=== PATIENT | female | born 1985 | race Caucasian/White ===

== ENCOUNTER 2021-10-11 13:56 | Outpatient (CLI) | payer OTHER, SELFPAY ==
--- NOTE | ~2021-10-11 | US_ITS ---
EXAMINATION: US OB <= 14 weeks fetus EXAM DATE: 10/11/2021 14:22 INDICATION: O36.80X0 - with inconclusive viability, n... 1st trimester. TECHNIQUE: Pelvic obstetrical transabdominal sonogram was performed by a technologist. There are mu ltiple grayscale and Doppler images available for interpretation. There are no earlier studies of th is gestation for comparison. FINDINGS: Uterus measures 11.3 x 8.9 x 6.7 cm. There is intrauterine gestation sac. pole with heart rate confirmed at 175 beats per minute. The 3.6 cm crown-rump length corresponds to estimated gestational age by ultrasound of 10 weeks 4 days, estimated date of confinement 05/05. There is no sonographic evidence of subchorionic hemorrhage. Right ovary identified and is morphologically norm al with low resistance Doppler flow confirmed. IMPRESSION: Live intrauterine gestation, age by ultrasound 10 weeks 4 days. Reviewed, dictated and finalized at location A.
== END 2021-10-11 13:57 | disposition home or self-care (01) ==
LOC: ANHIMG 14:01
PROVIDERS: Visit Provider Obstetrics & Gynecology
DX: O36.80X0 Pregnancy with inconclusive fetal viability, not applicable or unspecified (principal); Z3A.10 10 weeks gestation of pregnancy
CPT/HCPCS: 76801

== ENCOUNTER 2022-04-26 10:43 | Outpatient (CLI) | payer OTHER, SELFPAY ==
--- NOTE | ~2022-04-26 | US_ITS ---
EXAMINATION: US OB limited DATE: 04/26/2022 12:27 INDICATION: Assess amniotic fluid index during third trimester of . TECHNIQUE: Real-time ultrasound of the pelvis was performed. The interpreting radiologist was not pre sent for the study. COMPARISON: None. FINDINGS: There is a single living fetus in vertex presentation. The placenta is right lateral. heart ra te is 119 beats per minute (bpm). The amniotic fluid index is 21.9 cm, which is normal (5th%-95%: 7.3 -23.9 cm at 38 weeks estimated gestational age). The amniotic fluid is hypoechoic with scattered [place] echogenic foci consistent with internal debris. IMPRESSION: 1. Single living fetus in vertex presentation with heart rate of 119 bpm. 2. Normal amniotic fluid index of 21.9 which appears hypoechoic with scattered echogenic debris whic h raises the possibility of meconium. Reviewed, dictated and finalized at location B. IMPRESSION: 1. Single living fetus in vertex presentation with heart rate of 119 bpm . 2. Normal amniotic fluid index of 21.9 which appears hypoechoic with scattered echogenic debris which raises the possibility of meconium.
[2022-04-26 12:15] VITALS: BP 112/78; PULSE 74
== END 2022-04-26 12:35 | disposition home or self-care (01) ==
LOC: ANHOBOP 11:57 → ANHLDR 11:58
PROVIDERS: Visit Provider Obstetrics & Gynecology
DX: Z36.89 Encounter for other specified antenatal screening (principal)
CPT/HCPCS: 59025; 76815; 84112; 99199

== ENCOUNTER 2022-04-30 05:15 | Inpatient (IN) | payer OTHER, SELFPAY ==
[2022-04-30] VITALS (166 sets, daily range): BP systolic 88–163; BP diastolic 45–119; PULSE 25–165; RESP 16; TEMP 36.5–37.1; O2SAT 80–100; BMI 22.7
--- NOTE | 2022-04-30 05:15 | LDADM ---
This patient, Stacy Mariee, was admitted to Labor/Delivery/Recovery 106 on 04/30/22 at 05:15. Plans for labor, pain management and were discussed with patient. Patient/family oriented to hospital policies and general routines including ID bracelet, bed and alarms, visiting hours, pain management, procedures, bathroom and other care routines, personal items, smoking policy, room service/diet and guest tray routines, infant security routines, and visiting hours. Patient/Family are encouraged to report perceived risks to care and to ask questions if they do not understand what they are told or what they should do. See OBIX for further documentation.
[2022-04-30 06:00] LABS: Basophils Absolute Auto 0.1 K/mm3 (0.0-0.1); Basophils Percent Auto 0.6 % (0.2-1.2); Eosinophils Absolute Auto 0.3 K/mm3 (0-0.3); Eosinophils Percent Auto 3.3 % (0-4.4); Hematocrit 37.8 % (37.0-47.0); Hemoglobin 12.6 g/dL (12.0-15.0); Immature Granulocyte Absolute 0.05 K/mm3 (0.00-0.031); Immature Granulocyte Percent A 0.6 % (0-0.5); Lymphocytes Absolute Auto 2.58 K/mm3 (0.9-3.2); Lymphocytes Percent Auto 33.2 % (18.3-44.2); Mean Corpuscular HGB Conc 33.3 g/dl (32-36); Mean Corpuscular Volume 92.9 fl (80-100); Mean Platelet Volume 11.6 fl (7.4-10.4); Monocytes Absolute Auto 0.5 K/mm3 (0.1-0.6); Monocytes Percent Auto 6.8 % (2.6-8.5); Neutrophils Absolute Auto 4.3 K/mm3 (1.3-6.7); Neutrophils Percent Auto 55.5 % (45.5-73.1); Platelet Count Result 204 k/mm3 (150-375); Red Blood Count 4.07 M/mm3 (4.2-5.4); Red Cell Distribution Width 12.5 % (11.5-14.5); White Blood Count 7.8 K/mm3 (4.5-10.0)
[2022-04-30] MEDS: LACTATED RINGERS 1,000 ML 125 ML IV CONT ×3 (06:14→14:07)
[2022-04-30] MEDS: OXYTOCIN 30 UNITS/NS 500 ML 30 UNITS/500 ML BAG IV CONT (06:14)
--- NOTE | 2022-04-30 10:32 | PM.IMHP ---
H&P: HPI History of Present Illness Date/Time: 04/30/22 10:32 Chief Complaint: IOL Narrative: Patient is a at 39 2/7 weeks by EDC established by 10 week ultrasound which was not consistent with LMP. PNC significant for advanced maternal age, she did stop smoking in late second trimester. PNC also significant for LGA, last ultrasound EFW was not LGA, the abdominal circumference has measured consistently > 90% which has been counseled regarding risk of dystocia, andshe has been counseled on risk of LGA. She also had mild polyhydramnios, she declined surveillance testing. She opted for medical induction of labor after being counseled regarding risk and benefit of induction of labor versus spontaneous labor. Labs reviewed. GBS neg. Review of Systems Review of Systems: All systems reviewed & are unremarkable except as noted in HPI and below Constitutional: Constitutional: Reports no additional constitutional complaints and Denies headache(s) Eyes: Eyes: Denies spots in vision ENT: Reports system reviewed and no additional complaints, except as documented and Denies headache(s) Cardiovascular: Cardiovascular: Denies chest pain and Denies dyspnea Respiratory: Respiratory: Denies dyspnea Gastrointestinal: Gastrointestinal: Reports no additional gastrointestinal complaints Genitourinary: Genitourinary: Reports amenorrhea Musculoskeletal: Musculoskeletal: Reports no additional musculoskeletal complaints Integumentary/Breasts: Skin/Breast: Denies breast mass and Denies rash Neurologic: Denies headache(s) Psychiatric: Psychiatric: Reports no additional psychiatric complaints PMFSH Family History Family History Father Alcoholism Son Asthma Grandparent Cancer Hypertension Social History Social History Smoking status: Former smoker Tobacco type: cigarettes Alcohol intake: never Substance use: never Spiritual care concerns: No Meds Home Medications and Allergies Home Medications Medication Instructions Recorded Confirmed Type vits 75-iron 28 mg-folic pkg PO 10/11/21 04/26/22 History acid 800 mcg-omega-3 oral combo pack (One A Day Women's DHA) ADVANCED Calcium 600 mg PO DAILY 04/05/22 04/26/22 History cholecalciferol (vitamin D3) 50 50 mcg PO DAILY 04/05/22 04/26/22 History mcg (2,000 unit) tablet (Vitamin D3) Allergies Allergy/AdvReac Type Severity Reaction Status Date / Time No Known Allergies Allergy Verified 04/26/22 09:59 Vital Signs Vital Signs - 24 hr 04/30/22 05:37 04/30/22 06:00 04/30/22 05:57 Temperature 97.8 F Pulse Rate 65 67 Blood Pressure 113/75 106/75 Oxygen Delivery 04/30/22 06:30 04/30/22 07:00 04/30/22 07:30 Temperature Pulse Rate 66 65 66 Blood Pressure 107/72 109/76 113/80 Oxygen Delivery 04/30/22 08:00 04/30/22 08:30 04/30/22 09:00 Temperature Pulse Rate 58 L 53 L 62 Blood Pressure 122/87 122/72 118/73 Oxygen Delivery 04/30/22 09:18 04/30/22 09:30 04/30/22 10:00 Temperature 97.8 F Pulse Rate 68 64 Blood Pressure 119/71 119/78 Oxygen Delivery 04/30/22 10:30 04/30/22 06:15 Temperature Pulse Rate 70 Blood Pressure 121/86 Oxygen Delivery Room Air Exam Const: General: no acute distress Eyes: General: appearance normal, both eyes and all related structures Resp: Effort & Inspection: normal respiratory effort Cardio: Rate: regular rate GI: Other: Gravid no fundal tenderness no right upper quadrant pain : External Female Exam: normal external appearance Speculum Exam - Cervix: Other cervical findings present (cervix 2/70/-2.) Skin: General skin exam: no rashes or lesions noted Neuro: Cognition (Neuro): normal cognition Extrem: General: normal to inspection Psych: Mental Status: mental status grossly normal H&P: R
--- NOTE | 2022-04-30 10:32 | PM.OBPNLAB ---
Pain Control Date/time seen: 04/30/22 0930 FHT 125 Cat 1, cervix /-2 at approx 0920, AROM light meconium. Discussed meconium management at delivery.
--- NOTE | 2022-04-30 11:18 | WPDANESEPP ---
Anes - Eval Pre Procedure Procedure: Labor Epidural Date/Time: 04/30/22 11:18 Surgeon: Gabriel Preop Diagnosis: Labor Pain Pre Op Diagnosis: iol Patient Data Age: 36 Gender: F Height: 1.65 m Weight: 62 kg Last Vital Signs Temp 37.1 C 04/30/22 10:59 Pulse 63 04/30/22 11:00 BP 111/61 04/30/22 11:00 O2 Del Method Room Air 04/30/22 06:15 Allergies Allergy/AdvReac Type Severity Reaction Status Date / Time No Known Allergies Allergy Verified 04/26/22 09:59 Home Medications Medication Instructions Recorded Confirmed Type vits 75-iron 28 mg-folic pkg PO 10/11/21 04/26/22 History acid 800 mcg-omega-3 oral combo pack (One A Day Women's DHA) ADVANCED Calcium 600 mg PO DAILY 04/05/22 04/26/22 History cholecalciferol (vitamin D3) 50 50 mcg PO DAILY 04/05/22 04/26/22 History mcg (2,000 unit) tablet (Vitamin D3) Laboratory Tests 04/30/22 04/30/22 04/30/22 05:35 05:35 05:35 WBC 7.8 K/mm3 K/mm3 (4.5-10.0) RBC 4.07 M/mm3 L M/mm3 (4.2-5.4) Hgb 12.6 g/dL g/dL (12.0-15.0) Hct 37.8 % % (37.0-47.0) MCV 92.9 fl fl (80-100) MCH 31.0 pg pg (26-34) MCHC 33.3 g/dl g/dl (32-36) RDW 12.5 % % (11.5-14.5) Plt Count 204 k/mm3 k/mm3 (150-375) MPV 11.6 fl H fl (7.4-10.4) Immature Gran % (Auto) 0.6 % H % (0-0.5) Neut % (Auto) 55.5 % % (45.5-73.1) Lymph % (Auto) 33.2 % % (18.3-44.2) [place] % (Auto) 6.8 % % (2.6-8.5) Eos % (Auto) 3.3 % % (0-4.4) Baso % (Auto) 0.6 % % (0.2-1.2) Lymph # (Auto) 2.58 K/mm3 K/mm3 (0.9-3.2) [place] # (Auto) 0.5 K/mm3 K/mm3 (0.1-0.6) Eos # (Auto) 0.3 K/mm3 K/mm3 (0-0.3) Baso # (Auto) 0.1 K/mm3 K/mm3 (0.0-0.1) Abs Immat Gran (auto) 0.05 K/mm3 H K/mm3 (0.00-0.031) Absolute Neuts (auto) 4.3 K/mm3 K/mm3 (1.3-6.7) Absolute Nucleated RBC 0.0 K/mm3 K/mm3 (0.0-0.012) Nucleated RBC % 0.0 % % (0.0-0.2) RPR Pending Blood Type A Positive Antibody Screen Negative : gestational age (, AMBROSIO 05/05/22) Patient hx anesthesia problems: none Family hx anesthesia problems: none Results Review: All pre-operative results and documents have been reviewed as part of the pre-operative evaluation. [facility] Family History Family History Father Alcoholism Son Asthma Grandparent Cancer Hypertension Social History Social History Smoking status: Former smoker Tobacco type: cigarettes Alcohol intake: never Substance use: never Spiritual care concerns: No Exam Day of Procedure 04/30/22 11:18 Patient weight: normal Heart: regular rate and rhythm Lungs: normal air movement Airway: Mallampati scale class II Neurological: alert and oriented
[2022-04-30 12:13] LABS: Rapid Plasma Reagin Non-Reactive (NonReactive)
[2022-04-30] MEDS: ACETAMINOPHEN 325 MG TABLET 650 MG PO (17:09)
--- NOTE | 2022-04-30 17:16 | PM.OBPRVD ---
OB - Delivery Note Procedure Delivery date: 04/30/22 Procedure: Spontaneous vaginal delivery Events: Polyhydramnios (mild) Induction method: Per Pitocin Protocol Delivery augmentation: Rupture of Membranes Delivery monitor: External FHT Route of delivery: Laceration Description: Perineal - 2nd Degree Delivery repair: vicryl (3.0 vicry) Specimen: No Quantitative Blood Loss (ml): 250 Anesthesia type: Epidural Disposition: Floor Complications: None Narrative: She was admitted on 04/30/2022. Pitocin was started. She had AROM at approximately 0920, light meconium noted. She progressed to active labor. Epidural was placed upon request. She continued to make progress in labor and dilated to complete. She pushed approximately 20 minutes and delivered a male infant. The nose and mouth suctioned at perineum. The anterior shoulder was delivered with gentle traction and the rest of the was delivered. Infant was vigorously crying and placed on maternal abdomen. Delayed cord clamping for approximately 45 sec and then the cord was doubly clamped and cut. Pitocin was started. Placenta was delivered spontaneously and intact. She did sustain a second degree perineal laceration which was repaired with 3.0 vicryl. Patient tolerated procedure well. Kermit Baby Date of : 04/30/22 Time of : 16:35 Weeks of gestation at delivery: 39 gender: Male Weight (pounds): 8 Weight (ounces): 7 presentation: vertex position: Right Occiput Anterior Placenta delivery description: Spontaneous Cord Vessel Description: Delayed Cord Clamping score one minute: 8 score five minutes: 9
[2022-04-30] MEDS: WITCH HAZEL 40 PADS 1 PAD TOPICAL (19:12)
[2022-04-30] MEDS: BENZOCAINE 20% AER SPR (*SP) 56 GM CAN 1 SPRAY TOPICAL (19:12)
--- NOTE | 2022-04-30 19:55 | PC.NURSE ---
Patient transferred to post room # [id number] via ( w/c ). Support person present. Oriented to unit, room, information board, rooming in, admission packet and security measures. Patient verbalizes understanding.
[2022-04-30] MEDS: IBUPROFEN 600 MG TABLET PO (21:32)
[2022-05-01 00:15] VITALS: BP 104/44; PULSE 78; RESP 16; TEMP 36.7; O2SAT 97
[2022-05-01] MEDS: ACETAMINOPHEN 325 MG TABLET 650 MG PO ×3 (00:24→15:51)
[2022-05-01 05:00] VITALS: BP 95/56; PULSE 75; RESP 16; TEMP 36.7; O2SAT 98
[2022-05-01] MEDS: IBUPROFEN 600 MG TABLET PO ×2 (05:25→11:29)
[2022-05-01 06:02] LABS: Hematocrit 28.9 % (37.0-47.0); Hemoglobin 9.7 g/dL (12.0-15.0)
--- NOTE | 2022-05-01 07:41 | WPDANLDPN2 ---
Anes-Prog Note L&D Date/Time: 05/01/22 07:41 Comfortable throughout: labor Neuraxial method: epidural Epidural/Spinal procedure site: clean & non-tender Neuro status: Neuro function grossly intact. Cardiovascular status: normal Respiratory status: normal Airway patency: baseline Mental status: baseline Post-Op hydration status: normal Vital Signs: Last Vital Signs Temp 98.0 F 05/01/22 05:00 Pulse 75 05/01/22 05:00 Resp 16 05/01/22 05:00 BP 95/56 L 05/01/22 05:00 Pulse Ox 98 05/01/22 05:00 O2 Del Method Room Air 04/30/22 20:20 Pain score (VAS): 0-1 I/O: Intake & Output 04/30/22 04/30/22 05/01/22 15:59 23:59 07:59 Intake Total 1999 1500 Output Total 295 Balance 1999 1205 Patient feedback: Patient satisfied with anesthetic care.
[2022-05-01 07:45] VITALS: BP 105/60; PULSE 76; RESP 16; TEMP 36.6; O2SAT 99
[2022-05-01] MEDS: DIBUCAINE 1% OINTMENT 30 GM TUBE 1 APPLIC TOPICAL (09:03)
--- NOTE | 2022-05-01 10:48 | PC.NURSE ---
[id number] Introductions were made, then consulted with patient to assess needs related to . Mother led the conversation with her?plans to feed?her infant and the?experience so far. Resources provided for inpatient and outpatient services using a resource guide and mom/baby guide. Mother voiced understanding of information and requests assistance waking her . Mother understands skin to skin. RN encouraged stimulating infant with position changes, massage touch, talking and burping. was sleepy and reluctant after circumcision and pain medication. Encourage mother to call if infant doesn't wake in 1-2 hours to eat, discussed checking infant's blood sugar if it has been 6 hours since the last feeding or if there's pain with latching. Reported to primary RN.
[2022-05-01 11:55] VITALS: BP 97/55; PULSE 57; RESP 16; TEMP 37.6; O2SAT 98
--- NOTE | 2022-05-01 12:48 | P.PNOB_ITS ---
OB - PN: Subj Subjective Date/time seen: 05/01/22 12:48 Patient comments: pain well controlled, tolerating diet and other (Decreasing lochia.) baby status: doing well and nursing well [place] feeding status: exclusively breast feeding OB - PN: Obj Data Labs CBC & Chem 7: 05/01/22 05:21 Labs: Laboratory Results - last 24 hr 05/01/22 05:21 Hgb 9.7 L Hct 28.9 L OB - PN A/P Assessment and Plan (1) Delivery normal: Code(s): O80 - Encounter for full-term uncomplicated delivery Status: Acute Plan She is doiing well. She desires discharge today. Plan day: 1 Plan: routine care Comments: Patient doing well. Time Spent With Patient Time: Total time spent is greater than 50% in coordination of care (as documented) at patient's floor/unit and/or counseling patient: Exam Psych: Affect: normal affect Other: Abd: fundus firm below umbilicus, nontender Perineum: healing Ext: nontender
[2022-05-01 16:00] VITALS: BP 101/50; PULSE 55; RESP 16; TEMP 36.6; O2SAT 97
--- NOTE | 2022-05-25 09:28 | PM.OBDSVD ---
DS: Admitting Diagnosis Discharge Date 05/01/22 Admitting Diagnosis Medical induction of labor DS: Discharge Diagnosis Discharge Diagnosis (1) Delivery normal: Code(s): O80 - Encounter for full-term uncomplicated delivery Status: Acute Plan Intrauterine delivered OB - DS: Summary Hospital Course Hospital Course: She was admitted for medical induction of labor with Pitocin. She had an uncomplicated vaginal delivery. She did well . Baby was doing well. She was discharged to home on day 1. Discharge precautions discussed. OB Procedures : Ultrasound OB Procedures Intrapartum: Spontaneous Vag Delivery OB Procedures: : None Peripartum Data Delivery Method: Natural Vaginal Laceration Description: Perineal - 2nd Degree complications: none Status at Discharge Functional status at discharge: independent ambulation Time Spent with Patient Time attestation: Total time spent providing and/or coordinating discharge services: Exam Const: General: cooperative Orientation/consciousness: oriented to person, oriented to place and oriented to time HENMT: Face/Nose/Sinus: Normal external nose present Eyes: General: appearance normal, both eyes and all related structures Resp: Effort & Inspection: normal respiratory effort GI: Inspection: normal to inspection : Other: fundus firm nontender perineum healing Skin: General skin exam: normal color Neuro: General: oriented to person, oriented to place and oriented to time Extrem: General: normal to inspection and no calf tenderness Psych: Appearance: grossly normal Mental Status: mental status grossly normal Discharge Plan Discharge Attending physician on discharge: Kp Rios Consulting providers: Elba Aponte ; Faviola Kessler Discharging Clinician: Kp Rios Anticipated Discharge Date/Time: 05/01/22 16:13 Patient Disposition: Home, Self-Care Activity: may shower and pelvic rest Diet: regular Discharge Instructions: Education: Mom and Baby Guide Given to: Mother Follow-Up: Call your delivering provider's office for an appointment to be seen in: 4-6 Weeks Mom and baby should come to the [facility] for the follow-up appointment. Appointment Date/Time: May 03, 2022 at 10:00 am What to expect at your follow-up visit: Blood Pressure Check Physical Assessment Call [phone] if you are unable to keep your appointment time. BREAST CARE: * Wear a snug supportive bra. * For engorgement discomfort: Breast Feeding: * Apply warm moist washcloths * Express milk as needed to relieve engorgement * Wear loose clothing * For sore nipples: * Identify correct latch-on * Apply warm moist washcloths before and after nursing * Air dry nipples after nursing * May apply Lansinoh cream to nipples PERINEAL CARE: * Until bleeding stops, use your johanny bottle after urinating * Change your pad frequently throughout the day * You may take sitz baths several times a day (fill your bathtub with warm water and soak for 20 minutes.) Do NOT bathe in the water * No tub baths until seen by your physician - You may shower ACTIVITY: * Rest as much as possible. * Do not exercise or lift anything heavier than your baby (such as laundry or other children.) * Avoid stairs or driving as much as possible. * Do not put anything into the vagina. No douching, tampons, or sexual activity until seen by physician. NOTIFY PHYSICIAN IF YOU HAVE ANY QUESTIONS OR IF ANY OF THE FOLLOWING SYMPTOMS OCCUR: * If your episiotomy or incision becomes red, swollen, or more painful than what you have experienced in the hospital. * If your vaginal bleeding becomes foul smelling. * If your vaginal bleeding becomes more heavy than a period or if your bleeding changes from pink to bright red. However, you may pass an o
== END 2022-05-01 17:56 | disposition home or self-care (01) | DRG 807 ==
LOC: ANHLDR 05:17 → ANHOB2 19:56
PROVIDERS: Admitting Provider Obstetrics & Gynecology; Visit Provider Obstetrics & Gynecology
DX: O40.3XX0 Polyhydramnios, third trimester, not applicable or unspecified (principal); Z37.0 Single live birth; Z3A.39 39 weeks gestation of pregnancy; O77.0 Labor and delivery complicated by meconium in amniotic fluid; O70.1 Second degree perineal laceration during delivery
CPT/HCPCS: 36415; 85014; 85018; 85025; 86592; 86850; 86900; 86901; A9270; J2590; J2795; J7120